=== PATIENT | male | born 1965 | race Hispanic/Latino ===

== ENCOUNTER 2017-10-01 10:33 | Observation (INO) | payer OTHER ==
[2017-10-01 10:51] LABS: BASOPHILS % (AUTO) 0.3 % (0.0-5.0); EOSINOPHILS % (AUTO) 1.4 % (0.0-8.0); HEMATOCRIT 41.9 % (42-54); LYMPHOCYTES % (AUTO) 23.9 % (21.0-51.0); MEAN CORPUSCULAR HEMOGLOBIN 30.6 pg (27.0-33.0); MEAN CORPUSCULAR HGB CONC 34.5 g/dL (32.0-36.0); MEAN CORPUSCULAR VOLUME 88.8 fL (79-99); NEUTROPHILS % (AUTO) 67.4 % (40.0-77.0); PLATELET COUNT (AUTO) 342 K/uL (130-400); RED BLOOD CELL COUNT(AUTO) 4.72 MIL/uL (4.50-6.20); RED CELL DISTRIBUTION WIDTH 13.6 % (11.0-15.5); WHITE BLOOD COUNT (AUTO) 9.4 K/uL (4.8-10.8)
[2017-10-01 11:01] LABS: CREATININE 0.8 mg/dL (0.5-1.5); POTASSIUM 4.3 mmol/L (3.5-5.1)
[2017-10-01 11:11] LABS: ALBUMIN 3.3 g/dL (3.5-5.0); BILIRUBIN,TOTAL 0.4 mg/dL (0.2-1.0); TOTAL PROTEIN, SERUM 7.5 g/dL (6.0-8.3)
[2017-10-01 11:13] LABS: CREATINE KINASE MB 1.1 ng/mL (0.5-3.6)
[2017-10-01] MEDS ORDERED: MORPHINE SULFATE 4 MG/1ML SYG IV PRN (12:45)
[2017-10-01] MEDS ORDERED: ONDANSETRON HCL 4 MG/2 ML VIAL IV PRN (12:45)
[2017-10-01] MEDS ORDERED: MAG HYDROX/AL HYDROX/SIMETH ES 30 ML SUSP UDCUP PO PRN (12:45)
[2017-10-01] MEDS ORDERED: LACTULOSE 20 GM/30 ML UDCUP PO PRN (12:45)
[2017-10-01] MEDS ORDERED: HYDRALAZINE HCL 20 MG/ML VIAL IV PRN (12:45)
[2017-10-01] MEDS ORDERED: ACETAMINOPHEN 325 MG TAB PO PRN ×2 (12:45)
[2017-10-01] MEDS ORDERED: GUAIFENESIN-DM 200/20 MG 10 ML PO PRN (12:45)
[2017-10-01] MEDS ORDERED: NITROGLYCERIN 0.4 MG SL TAB SL PRN (12:45)
[2017-10-01] MEDS ORDERED: ACETAMINOPHEN-CODEINE 300/30MG TAB PO PRN ×2 (12:45)
[2017-10-01] MEDS ORDERED: MORPHINE SULFATE 2 MG/ML 1ML SYG IV PRN (12:45)
[2017-10-01] MEDS ORDERED: POTASSIUM CHLORIDE 20 MEQ ERTAB PO PRN (14:15)
[2017-10-01] MEDS ORDERED: LIDOCAINE HCL-MPF 1% 2ML VIAL IVP PRN (14:15)
[2017-10-01] MEDS ORDERED: KETOROLAC TROMETHAMINE 15MG/ML IV PRN (14:15)
[2017-10-01] MEDS ORDERED: POTASSIUM CHLORIDE 20MEQ/100ML 100 ML IV PRN (14:15)
[2017-10-01] MEDS ORDERED: POTASSIUM CHLORIDE 10% ELIXIR 20 MEQ/15 ML UDCUP PO PRN (14:15)
[2017-10-01] MEDS ORDERED: ONDANSETRON HCL 4 MG/2 ML VIAL ONE (15:04)
[2017-10-01] MEDS ORDERED: IOPAMIDOL-370 100 ML VIAL IV ONE (15:16)
[2017-10-01 17:09] LABS: CREATINE KINASE MB 0.8 ng/mL (0.5-3.6); CREATINE KINASE, TOTAL 140 U/L (21-232); MYOGLOBIN 38 ng/mL (10-92); TROPONIN I < 0.04 ng/mL (0.00-0.06)
[2017-10-01] MEDS ORDERED: ENOXAPARIN SODIUM 40 MG/0.4 ML SYRINGE SQ ONE (18:40)
[2017-10-01] MEDS ORDERED: FAMOTIDINE/PF 20 MG/2 ML VIAL IV ONE (18:41)
[2017-10-01] MEDS ORDERED: METOPROLOL TARTRATE 25 MG TAB ONE (18:41)
[2017-10-01] MEDS ORDERED: FAMOTIDINE/PF 20 MG/2 ML VIAL IV SCH (21:00)
[2017-10-01] MEDS ORDERED: METOPROLOL TARTRATE 25 MG TAB PO SCH (21:00)
[2017-10-02 01:34] LABS: CREATINE KINASE MB 0.6 ng/mL (0.5-3.6); CREATINE KINASE, TOTAL 133 U/L (21-232); MYOGLOBIN 29 ng/mL (10-92); TROPONIN I < 0.04 ng/mL (0.00-0.06)
[2017-10-02 06:10] LABS: CREATININE 0.9 mg/dL (0.5-1.5); POTASSIUM 4.4 mmol/L (3.5-5.1)
[2017-10-02] MEDS ORDERED: ASPIRIN 325 MG TABLET ONE (08:15)
[2017-10-02] MEDS ORDERED: ENOXAPARIN SODIUM 40 MG/0.4 ML SYRINGE SQ ONE (08:16)
[2017-10-02] MEDS ORDERED: ASPIRIN 325 MG TABLET PO SCH (09:00)
[2017-10-02] MEDS ORDERED: ENOXAPARIN SODIUM 40 MG/0.4 ML SYRINGE SQ SCH (09:00)
== END 2017-10-02 11:38 | disposition home or self-care (01) ==
LOC: EDH 10:33 → EDHIP 12:33
PROVIDERS: ADMIT Internal Medicine; ATTEND Internal Medicine
DX: R07.89 Other chest pain (principal); Z88.0 Allergy status to penicillin; I10 Essential (primary) hypertension; Z79.899 Other long term (current) drug therapy; Z90.49 Acquired absence of other specified parts of digestive tract; Z87.891 Personal history of nicotine dependence; R79.1 Abnormal coagulation profile
CPT/HCPCS: 36415 ×2; 71045; 71275; 80048; 80053; 82550 ×3; 82553 ×3; 83874 ×2; 84484 ×3; 85025; 85378; 93005 ×3; 99285; G0378 ×23; J1650 ×2; J2405; J3490; Q9967; 96361; 96372; 96374

== ENCOUNTER 2018-09-11 11:21 | Emergency (ER) | payer OTHER ==
[2018-09-11] MEDS ORDERED: ONDANSETRON HCL 4 MG/2 ML VIAL ONE (12:04)
[2018-09-11] MEDS ORDERED: KETOROLAC TROMETHAMINE 30MG/ML ONE (12:04)
[2018-09-11] MEDS ORDERED: SODIUM CHLORIDE 0.9% 1000ML 1,000 ML IV ONE (12:04)
[2018-09-11 12:12] LABS: APPEARANCE,URINE Clear (CLEAR); BILIRUBIN,URINE Negative (NEGATIVE); COLOR,URINE Yellow (YELLOW); GLUCOSE, URINE (UA) Negative (NEGATIVE); KETONES,URINE Negative (NEGATIVE); LEUKOCYTE ESTERASE ,URINE Trace (NEGATIVE); NITRATE,URINE Negative (NEGATIVE); OCCULT BLOOD,URINE Negative (NEGATIVE); PH,URINE >=9.0 (5.0-8.0); PROTEIN,URINE Trace (NEGATIVE)
[2018-09-11 12:23] LABS: BASOPHILS % (AUTO) 0.5 % (0.0-5.0); HEMATOCRIT 43.3 % (42-54); LYMPHOCYTES % (AUTO) 30.2 % (21.0-51.0); MEAN CORPUSCULAR HEMOGLOBIN 30.7 pg (27.0-33.0); MEAN CORPUSCULAR HGB CONC 34.8 g/dL (32.0-36.0); MEAN CORPUSCULAR VOLUME 88.2 fL (79-99); MONOCYTES % (AUTO) 7.3 % (3.0-13.0); PLATELET COUNT (AUTO) 357 K/uL (130-400); RED BLOOD CELL COUNT(AUTO) 4.91 MIL/uL (4.50-6.20); RED CELL DISTRIBUTION WIDTH 13.1 % (11.0-15.5)
[2018-09-11 12:33] LABS: POTASSIUM 3.8 mmol/L (3.5-5.1)
[2018-09-11 12:36] LABS: BACTERIA,URINE Rare /HPF (None Seen); MUCUS,URINE Few LPF (None Seen); RBC,URINE 0-1 /HPF (0-1); SQUAMOUS EPITHELIAL CELL,UR Rare /HPF (0-2)
[2018-09-11 12:39] LABS: ALBUMIN 3.8 g/dL (3.5-5.0); BILIRUBIN,TOTAL 0.3 mg/dL (0.2-1.0); TOTAL PROTEIN, SERUM 8.2 g/dL (6.0-8.3)
== END 2018-09-11 14:40 | disposition home or self-care (01) ==
LOC: EDH 11:21
DX: N39.0 Urinary tract infection, site not specified (principal); E78.5 Hyperlipidemia, unspecified; I10 Essential (primary) hypertension; Z88.0 Allergy status to penicillin
CPT/HCPCS: 36415; 74176; 80053; 81001; 83690; 85025; 96374; 96375; 99284; J1885; J2405; J7030

== ENCOUNTER 2021-01-24 10:47 | Emergency (ER) | payer OTHER ==
[2021-01-24] MEDS ORDERED: DEXAMETHASONE SOD PHOSPHATE 10MG/ML 1ML VIAL ONE (12:46)
[2021-01-24] MEDS ORDERED: DIAZEPAM 5 MG TABLET ONE (12:47)
[2021-01-24] MEDS ORDERED: KETOROLAC TROMETHAMINE 30MG/ML ONE (12:47)
== END 2021-01-24 13:13 | disposition home or self-care (01) ==
LOC: EDH 10:47
DX: M54.42 Lumbago with sciatica, left side (principal); I10 Essential (primary) hypertension; E78.5 Hyperlipidemia, unspecified; Z88.0 Allergy status to penicillin; Z72.0 Tobacco use
CPT/HCPCS: 96372 ×2; 99284; J1100; J1885

== ENCOUNTER 2021-11-13 10:18 | Emergency (ER) | payer BC, OTHER, SELFPAY ==
[~2021-11-13] VITALS: Ht 165.1 cm; Wt 112.5 kg
[2021-11-13 10:48] VITALS: BP 131/78
[2021-11-13 11:09] LABS: CREATININE 0.8 mg/dL (0.5-1.5); POTASSIUM 3.8 mmol/L (3.5-5.1)
[2021-11-13 11:13] LABS: ALBUMIN 3.3 g/dL (3.5-5.0); BILIRUBIN,TOTAL 0.3 mg/dL (0.2-1.0); TOTAL PROTEIN, SERUM 7.1 g/dL (6.0-8.3)
[2021-11-13 11:17] LABS: BASOPHILS % (AUTO) 0.4 % (0.0-5.0); HEMATOCRIT 43.2 % (42-54); MEAN CORPUSCULAR HEMOGLOBIN 29.3 pg (27.0-33.0); MEAN CORPUSCULAR HGB CONC 32.2 g/dL (32.0-36.0); MEAN CORPUSCULAR VOLUME 91.1 fL (79-99); MONOCYTES % (AUTO) 6.3 % (3.0-13.0); PLATELET COUNT (AUTO) 377 K/uL (130-400); RED BLOOD CELL COUNT(AUTO) 4.74 MIL/uL (4.50-6.20); RED CELL DISTRIBUTION WIDTH 13.6 % (11.0-15.5); WHITE BLOOD COUNT (AUTO) 9.4 K/uL (4.8-10.8)
== END 2021-11-13 12:43 | disposition home or self-care (01) ==
LOC: EDH 10:18
DX: R07.89 Other chest pain (principal); I10 Essential (primary) hypertension; E78.5 Hyperlipidemia, unspecified; Z90.49 Acquired absence of other specified parts of digestive tract; Z88.0 Allergy status to penicillin
CPT/HCPCS: 36415; 71045; 80053; 83880; 84484; 85025; 93005

== ENCOUNTER 2022-03-12 23:33 | Emergency (ER) | payer BC ==
[~2022-03-12] VITALS: Ht 165.1 cm; Wt 108.9 kg
[2022-03-13 01:29] LABS: APPEARANCE,URINE CLEAR (CLEAR); BILIRUBIN,URINE NEGATIVE (NEGATIVE); COLOR,URINE YELLOW (YELLOW); GLUCOSE, URINE (UA) NEGATIVE (NEGATIVE); KETONES,URINE NEGATIVE (NEGATIVE); LEUKOCYTE ESTERASE ,URINE NEGATIVE (NEGATIVE); NITRATE,URINE NEGATIVE (NEGATIVE); OCCULT BLOOD,URINE NEGATIVE (NEGATIVE); PROTEIN,URINE NEGATIVE (NEGATIVE); UROBILINOGEN,URINE 0.2 mg/dL (0.2-1.0)
[2022-03-13] MEDS ORDERED: KETOROLAC 60 MG VIAL (30MG/ML) IM ONE ×2 (02:30→02:35)
[2022-03-13] MEDS ORDERED: DEXAMETHASONE SOD PHOSPHATE 4 MG/ML 1ML VIAL IM ONE (02:30)
[2022-03-13] MEDS ORDERED: ORPHENADRINE CITRATE 30 MG/ML ML IM ONE (02:30)
[2022-03-13] MEDS ORDERED: DEXAMETHASONE SOD PHOSPHATE 4 MG/ML 1ML VIAL ONE (02:34)
[2022-03-13] MEDS ORDERED: ORPHENADRINE CITRATE 30 MG/ML ML ONE (02:35)
[2022-03-13 02:45] VITALS: BP 132/72
[2022-03-13] MEDS ORDERED: CYCL-309 PO (02:51)
== END 2022-03-13 03:07 | disposition home or self-care (01) ==
LOC: EDH 23:33
DX: M54.32 Sciatica, left side (principal); E78.00 Pure hypercholesterolemia, unspecified; I10 Essential (primary) hypertension; F17.200 Nicotine dependence, unspecified, uncomplicated; Z88.0 Allergy status to penicillin; Z79.1 Long term (current) use of non-steroidal anti-inflammatories (NSAID); Z79.52 Long term (current) use of systemic steroids
CPT/HCPCS: 81003; 96372 ×3; 99284; J1100; J1885; J2360

== ENCOUNTER 2024-11-01 04:42 | Emergency (ER) | payer BC ==
[~2024-11-01] VITALS: Ht 165.1 cm; Wt 104.3 kg
[~2024-11-01 04:42] MED LIST: AMLO-257 PO; ATOR10 PO; LISI20TA24 PO; METF-444 PO; PANT40TA54 PO
--- NOTE | 2024-11-01 04:47 | NUR ---
PT CARE ASSUMED AT THIS TIME
--- NOTE | 2024-11-01 05:05 | ERN ---
ED Note History of Present Illness Stated Complaint: ABD PAIN, FLANK PAIN, BACK PAIN Chief Complaint: Multiple Complaints Time Seen by MD: 04:20 Dictation: This is a 59-year-old male who presented to the emergency room stating that he has been experiencing severe right-sided abdominal pain and flank pain radiating to the back since 10/30/2024. He stated that the pain got so worse today that he could not sleep and came in for evaluation also reports some nausea intermittently but no vomitings diarrhea hematemesis or melena he had his last BM yesterday small quantity. No history of any diarrhea. He denied any hematuria frequency dysuria but he does have a history of previous kidney stone. Temperature 97.7 pulse 79 respirations 20 blood pressure 158/96 with a pulse oximetry of 98% on room air Chronic problems include hypertension hypercholesterolemia, sciatica, nephrolithiasis Allergies: Coded Allergies: No Allergy Information Available (Verified Allergy, Unknown, 10/02/17) Penicillins (Unverified Allergy, Unknown, 01/24/21) Home Meds Active Scripts Ketorolac Tromethamine (Toradol) 10 Mg Tab, 1 TAB PO Q6HPRN PRN for pain for 5 Days, #20 TAB 0 Refills Prov:HERBER WARE MD 11/01/24 Levofloxacin (Levofloxacin) 250 Mg Tablet, 1 TAB PO DAILY for 3 Days, #7 TAB 0 Refills Prov:HERBER WARE MD 11/01/24 Tamsulosin HCl (Flomax) 0.4 Mg Cap.er.24h, 1 CAP PO DAILY for 30 Days, #30 CAP 0 Refills Prov:HERBER WARE MD 11/01/24 Reported Medications Amlodipine Besylate (Amlodipine Besylate) 5 Mg Tablet, 5 MG PO DAILY, TAB 05/04/24 Lisinopril (Lisinopril) 20 Mg Tablet, 20 MG PO DAILY, TAB 05/04/24 Metformin HCl (Metformin HCl) 500 Mg Tablet, 500 MG PO AD, TAB 05/04/24 Pantoprazole Sodium (Pantoprazole Sodium) 40 Mg Tablet.dr, 40 MG PO DAILY, TAB 05/04/24 Atorvastatin Calcium (LIPITOR) 20 Mg Tab, 20 MG PO HS, TAB 05/04/24 Past Medical History Past Medical History: High Cholesterol, Hypertension, Kidney Stone, Sciatica Surgical History: Cholecystectomy Social History: Smokers, ETOH RN Note Reviewed/Agreed w/PFSH: Yes Review of System Dictation Constitutional: Negative for fever,chills, and weight loss Eyes: Negative for injury, pain,redness, and discharge ENT: Negative for injury,pain or swelling Cardiovascular: Negative for chest pain, palpitations, and edema Respiratory: Negative for shortness of breath, cough, and wheezing, Abdomen/GI: Negative for abdominal pain, nausea, vomiting, diarrhea, and constipation Back: Negative for injury and pain : Negative for injury, bleeding and discharge positive for right flank pain radiating to the back MS/Extremity: Negative for injury and deformity Skin: Negative for rash, and discoloration Neuro: Negative for headache, weakness, numbness, tingling, and seizure Psych: Negative for suicide ideation, homicidal ideation, and hallucinations Initial Vital Sign VS Vital Signs Date Time Temp Pulse Resp B/P (MAP) Pulse Ox O2 Delivery O2 Flow Rate FiO2 11/01/24 04:43 97.7 79 20 158/96 98 Room Air 11/01/24 05:05 0 21 Physical Exam Dictation General: awake, alert, NAD very obese patient pleasant not in any acute distress Head/Face: Normocephalic, atraumatic Eyes: PERRL, EOMI, vision at baseline ENT: oral cavity clear, TMs clear, no signs of infection Neck: Trachea midline, supple, no nuchal rigidity Cardiovascular: RRR, normal S1/S2, No MRGs, no JVD Respiratory: CTAB, no respiratory distress, No rales or wheezes Abdomen: Soft, obese, right flank tender to palpation, normal bowel sounds, no guarding or rebound. Skin: Warm, dry, normal turgor, no rash MS/Extremity: Pulses equal, no cyanosis, neurovascular intact, FROM Neuro: COAx4, GCS 15, strength 5/5, CN 2-12 intact, normal cerebellar exam, normal gait, Psych: Normal behavior, mood, and affect normal Extremities-trace edema without any palpable cords, Homans sign is negative Results (Laboratory/Radiology) Laboratory/Radiology Laboratory Tests Test 11/01/24 05:03 11/01/24 06:42 White Blood Count 11.9 K/uL (4.8-10.8) H Red Blood Count 4.94 MIL/uL (4.50-6.20) Hemoglobin 14.8 g/dL (14.0-18.0) Hematocrit 44.0 % (42-54) Mean Corpuscular Volume 89.1 fL (79-99) Mean Corpuscular Hemoglobin 30.0 pg (27.0-33.0) Mean Corpuscular Hemoglobin Concent 33.6 g/dL (32.0-36.0) Red Cell Distribution Width 13.3 % (11.0-15.5) Platelet Count 338 K/uL (130-400) Mean Platelet Volume 8.8 fL (7.5-10.5) Immature Granulocyte % (Auto) 0.3 % (0-1) Neutrophils (%) (Auto) 63.2 % (40.0-77.0) Lymphocytes (%) (Auto) 25.1 % (21.0-51.0) Monocytes (%) (Auto) 8.2 % (3.0-13.0) Eosinophils (%) (Auto) 2.9 % (0.0-8.0) Basophils (%) (Auto) 0.3 % (0.0-5.0) Neutrophils # (Auto) 7.5 K/uL (1.8-7.7) Lymphocytes # (Auto) 3.0 K/uL (1.0-4.8) Monocytes # (Auto) 1.0 K/uL (0.1-1.0) Eosinophils # (Auto) 0.35 K/uL (0.00-0.70) Basophils # (Auto) 0.04 K/uL (0.00-0.20) Absolute Immature Granulocyte (auto 0.03 K/uL (0-1) Nucleated Red Blood Cells 0.0 % (0.0-0.19) Sodium Level 144 mmol/L (136-145) Potassium Level 3.8 mmol/L (3.5-5.1) Chloride Level 105 mmol/L (101-111) Carbon Dioxide Level 28 mmol/L (21-32) Blood Urea Nitrogen 18 mg/dL (7-18) Creatinine 1.0 mg/dL (0.5-1.3) Glomerular Filtration Rate Calc 86 mL/min (>90) Random Glucose 116 mg/dL (70-105) H Total Calcium 9.0 mg/dL (8.5-10.1) Total Bilirubin 0.2 mg/dL (0.2-1.0) Direct Bilirubin 0.1 mg/dL (0.0-0.3) Aspartate Amino Transf (AST/SGOT) 29 U/L (10-37) Alanine Aminotransferase (ALT/SGPT) 62 U/L (12-78) Alkaline Phosphatase 122 U/L (50-136) Troponin I High Sensitivity 6 ng/L (4-75) Total Protein 8.0 g/dL (6.0-8.3) Albumin 3.8 g/dL (3.5-5.0) Lipase 63 U/L (16-77) Urine Color LIGHT-YELLOW (YELLOW) Urine Appearance CLEAR (CLEAR) Urine pH 5.5 (5.0-8.0) Urine Specific Hibbs 1.023 (1.001-1.031) Urine Protein NEGATIVE mg/dL (NEGATIVE) Urine Glucose (UA) NEGATIVE mg/dL (NEGATIVE) Urine Ketones NEGATIVE mg/dL (NEGATIVE) Urine Occult Blood MODERATE (NEGATIVE) H Urine Nitrate NEGATIVE (NEGATIVE) Urine Bilirubin NEGATIVE mg/dL (NEGATIVE) Urine Urobilinogen 0.2 mg/dL (0.2-1.0) Urine Leukocyte Esterase NEGATIVE Erlin/uL Urine RBC 6-10 /HPF (0-1) H Urine WBC 2-5 /HPF (0-1) H Urine Squamous Epithelial Cells RARE /HPF (0-2) Urine Bacteria RARE /HPF (None Seen) Labs Reviewed?: Yes EKG Comment: Twelve lead EKG done on 11/01/2024 at 4:43 a.m. showed a heart rate of 69, MA interval 191, QRS 92, QT/QTC 401/429 Impression normal sinus rhythm with no acute STT wave changes noted. Isolated Q-waves seen in lead 3 and AVF suggestive of old infarct. Overall somewhat of a low voltage in the anterior leads. Interpreted by ER MD Dr. Candelaria ED Course ED Course Orders Procedure Category Date Status Time Cbc With Differential LAB 11/01/24 Complete 04:46 Basic Metabolic Panel LAB 11/01/24 Complete 04:46 Urinalysis Profile LAB 11/01/24 Complete 04:46 12 Lead Ekg Tracing- EKG 11/01/24 Complete Technical 04:46 Troponin I High LAB 11/01/24 Complete Sensitivity 04:46 Lipase LAB 11/01/24 Complete 04:46 Hepatic Function Panel LAB 11/01/24 Complete 04:46 Ct Abd/Pel Wo Con CT 11/01/24 Resulted Renal/Appy 05:51 Ondansetron 4mg Inj PHA 11/01/24 Complete (Zofran 4mg Inj) 06:00 Morphine 4mg Syg PHA 11/01/24 Complete (Morphine 4mg Syg) 06:00 0.9% Nacl 500ml PHA 11/01/24 Complete Iv.Soln (Ns 500ml 06:00 Tamsulosin Hcl PHA 11/01/24 Complete (Flomax) 09:00 Current Medications Medications (Trade) Dose Ordered Sig/Amarjit Route PRN Reason Start Time Stop Time Status Last Admin Dose Admin Morphine Sulfate (morPHINE 4MG SYG) 4 mg ONCE ONCE IVP 11/01/24 06:00 11/01/24 06:01 DC 11/01/24 06:10 Ondansetron HCl (zoFRAN 4MG INJ) 4 mg ONCE ONCE IVP 11/01/24 06:00 11/01/24 06:01 DC 11/01/24 06:10 Sodium Chloride 500 ml @ 0 mls/hr ONCE ONCE IV 11/01/24 06:00 11/01/24 06:01 DC 11/01/24 06:10 Tamsulosin HCl (FloMAX) 0.4 mg ONCE ONCE PO 11/01/24 09:00 11/01/24 09:01 DC 11/01/24 08:40 Vital Signs Date Time Temp Pulse Resp B/P (MAP) Pulse Ox O2 Delivery O2 Flow Rate FiO2 11/01/24 07:06 98.2 70 17 120/68 97 Room Air* 0 21 11/01/24 06:06 98.2 75 18 138/88 97 Room Air* 0 21 11/01/24 05:05 98.2 79 18 125/70 97 Room Air* 0 21 11/01/24 04:43 97.7 79 20 158/96 98 Room Air Medical Decision Making MDM MDM: Differential diagnosis: Renal colic, constipation, cholangitis, diverticulitis Rationale: Tests considered and ordered secondary to shared decision making include: Previous outside records reviewed: Old ER visits. Risk of complication and/or morbidity or mortality of patient management: None Medications-Per medication reconciliation Need for hospitalization: Patient does not meet criteria for hospitalization. Need for emergency major/minor surgery: No There are no social concerns with this patient. Prescription drug management Prescriptions will include symptomatic care Patient's prior external medical records from other ER visits were reviewed by me as indicated. Prior testing and results from previous visits were reviewed. Prior tests were taken into account with medical decision making and resource utilization, independent historian/historians were used to obtain complete medical history. I independently interpreted the test that were performed, results were reviewed by me and considered findings on radiology if ordered. Medical management and examination interpretation discussions were had by me with other qualified healthcare professionals as indicated for the patient's care. I took care of with the patient starting 7:00 a.m. from overnight physician. Patient came with a right flank pain. He was found to have stone in the right ureter. The PC description below. IMPRESSION: 1. 5 mm distal right ureteral stone contributing to moderate right hydroureteronephrosis. 2. Slightly enlarged fatty liver. 3. Distal colonic diverticulosis and moderate stool burden. 4. Arteriosclerotic disease as described. Urology was called for further evaluation and treatment. I discussed the findings with the patient, I explained to him that it is possible that he could pass the stone at home, we will provide a Flomax, pain medication and he was encouraged to drink enough fluids. If the pain persists patient to come back to the emergency department for further evaluation by urologist. Problem List Problem List: (1) Right flank pain (2) Morbid obesity (3) Chronic constipation DX & DISP Disposition: Discharge Departure Impression: Primary Impression: Right flank pain Additional Impressions: Morbid obesity, Chronic constipation, Right nephrolithiasis, Hydronephrosis concurrent with and due to calculi of kidney and ureter Condition: Stable Scripts Ketorolac Tromethamine (Toradol) 10 Mg Tab 1 TAB PO Q6HPRN PRN for pain for 5 Days, #20 TAB 0 Refills Prov: HERBER WARE MD 11/01/24 Levofloxacin (Levofloxacin) 250 Mg Tablet 1 TAB PO DAILY for 3 Days, #7 TAB 0 Refills Prov: HERBER WARE MD 11/01/24 Tamsulosin HCl (Flomax) 0.4 Mg Cap.er.24h 1 CAP PO DAILY for 30 Days, #30 CAP 0 Refills Prov: HERBER WARE MD 11/01/24 Additional Instructions: Patient and the caregiver have been informed of all the diagnostic tests and the imaging conducted during the today's visit to the emergency room and has verbalized understanding of the results I have personally reviewed and interpreted all diagnostic exams performed here in the ER today as well as the vital signs documented by the nursing staff. The patient is now being discharged to home and should follow up with the primary care physician or the specialist as directed by the ER staff. Follow-up with primary care provider in 1 to 2 days. Take medications as directed here in the emergency room. Okay to continue home medications unless otherwise discussed during your visit in the emergency room today. Return to your nearest emergency room if symptoms worsen or if there is no improvement. Call 911 if you need immediate assistance. Take Tylenol or Motrin [id number] as needed and if no contraindications are present. Increase oral hydration. A wound culture or urine culture was ordered here in the emergency room department please follow-up with primary care provider and advise them to get repeat ports from our facility. If you had any Jean Claude wrap/splints that were applied here, please do not remove them until you see your primary care or specialty. Referrals: LATESHA ARNOLD (PCP) ANNE CANDELARIA MD Nov 01, 2024 05:05 HERBER WARE MD Nov 01, 2024 08:36
[2024-11-01 05:09] LABS: BASOPHILS # (AUTO) 0.04 K/uL (0.00-0.20); BASOPHILS % (AUTO) 0.3 % (0.0-5.0); EOSINOPHILS # (AUTO) 0.35 K/uL (0.00-0.70); EOSINOPHILS % (AUTO) 2.9 % (0.0-8.0); IMMATURE GRANULOCYTE ABSOLUTE 0.03 K/uL (0-1); LYMPHOCYTES % (AUTO) 25.1 % (21.0-51.0); MEAN CORPUSCULAR HGB CONC 33.6 g/dL (32.0-36.0); MEAN CORPUSCULAR VOLUME 89.1 fL (79-99); MONOCYTES % (AUTO) 8.2 % (3.0-13.0); NEUTROPHILS # (AUTO) 7.5 K/uL (1.8-7.7); NEUTROPHILS % (AUTO) 63.2 % (40.0-77.0); PLATELET COUNT (AUTO) 338 K/uL (130-400); RED BLOOD CELL COUNT(AUTO) 4.94 MIL/uL (4.50-6.20); RED CELL DISTRIBUTION WIDTH 13.3 % (11.0-15.5); WHITE BLOOD COUNT (AUTO) 11.9 K/uL (4.8-10.8)
[2024-11-01 05:45] LABS: ALBUMIN 3.8 g/dL (3.5-5.0); BILIRUBIN,DIRECT 0.1 mg/dL (0.0-0.3); BILIRUBIN,TOTAL 0.2 mg/dL (0.2-1.0); POTASSIUM 3.8 mmol/L (3.5-5.1)
[2024-11-01] MEDS: 0.9% NACL 500ML IV.SOLN 500 ML IV ONE (06:10)
[2024-11-01] MEDS: morPHINE 4 MG SYG IVP ONE (06:10)
[2024-11-01] MEDS: ondanSETRON 4MG INJ IVP ONE (06:10)
[2024-11-01 06:55] LABS: APPEARANCE,URINE CLEAR (CLEAR); BILIRUBIN,URINE NEGATIVE (NEGATIVE); COLOR,URINE LIGHT-YELLOW (YELLOW); GLUCOSE, URINE (UA) NEGATIVE (NEGATIVE); KETONES,URINE NEGATIVE (NEGATIVE); LEUKOCYTE ESTERASE ,URINE NEGATIVE Leu/uL (NEGATIVE); NITRATE,URINE NEGATIVE (NEGATIVE); OCCULT BLOOD,URINE MODERATE (NEGATIVE); PH,URINE 5.5 (5.0-8.0); PROTEIN,URINE NEGATIVE (NEGATIVE); UROBILINOGEN,URINE 0.2 mg/dL (0.2-1.0)
[2024-11-01 07:11] LABS: ADD UA MICROSCOPIC YES
--- NOTE | 2024-11-01 07:22 | NUR ---
REPORT GIVEN TO DEXTER FERNANDEZ AT THIS TIME
--- NOTE | 2024-11-01 07:28 | EKG ---
[facility] Test Date: 2024-11-01 Test Time: 04:43:38 Pat Name: JACKSON POWERS Department: ED Room: Gender: M Temperature Regulator: 1088 : 1965 Requested By: ANNE GARRETT Order Number: [id number] Reading MD: Gilberto Mauricio Measurements Intervals [place] Rate: 69 P: 46 MA: 191 QRS: -33 QRSD: 92 T: 19 QT: 401 QTc: 429 Interpretive Statements Sinus rhythm Inferior infarct, old Compared to ECG 05/04/2024 12:13:02 No significant changes Electronically Signed On 11-01-2024 10:01:02 DEPOT MANAGER by Gilberto Mauricio Please click the below link to view image of tracing.
[2024-11-01 07:30] LABS: BACTERIA,URINE RARE /HPF (None Seen); MUCUS,URINE RARE LPF (None Seen); SQUAMOUS EPITHELIAL CELL,UR RARE /HPF (0-2)
--- NOTE | 2024-11-01 08:19 | HMCIMG ---
CT ABDOMEN WITHOUT CONTRAST. CT PELVIS WITHOUT CONTRAST. INDICATION: Right flank pain TECHNIQUE: Routine transaxial imaging using 5 mm slice thickness through the abdomen and pelvis without the administration of IV contrast. Thin slice reconstructions are also provided. Coronal and sagittal reformatted images acquired for interpretation. CT was performed with one or more of the following dose reduction techniques: Automated exposure control, adjustment of the mA and/or kV according to patient size, or use of iterative reconstruction technique. COMPARISON: 05/04/2024 FINDINGS: ON NONCONTRAST IMAGING: ABDOMEN: Heart size is normal. Coronary arterial wall calcific plaque noted. Visible lung bases are clear. No abnormal left renal calcifications, hydronephrosis, perinephric inflammation, or proximal hydroureter detected. 5 mm nonobstructing calculus within the distal right ureter contributing to moderate hydroureteronephrosis and right perinephric stranding. The liver is slightly enlarged and smooth in contour without biliary duct dilation. Diffuse low attenuation of the liver parenchyma suggests fatty change. The spleen is normal in size and attenuation. The gallbladder his absent. The pancreas appears normal without pancreatic duct dilation. The adrenal glands appear normal. No significant abdominal, retrocrural or retroperitoneal adenopathy noted. No evidence for intra-abdominal free air or organized fluid collection. Trace calcific plaque is noted along the abdominal aortic and iliac vessel singleton without aneurysmal dilation. PELVIS: No abnormal calcifications within the urinary bladder or distal ureters. No evidence for free air or organized pelvic fluid collection. No significant pelvic adenopathy detected. Moderate stool burden. Several diverticula along the distal colon. Terminal ileum appears unremarkable. The appendix appears normal. Mild thoracolumbar spondylosis. IMPRESSION: 1. 5 mm distal right ureteral stone contributing to moderate right hydroureteronephrosis. 2. Slightly enlarged fatty liver. 3. Distal colonic diverticulosis and moderate stool burden. 4. Arteriosclerotic disease as described.
[2024-11-01] MEDS: tamSULOsin HCL 0.4 MG CAP.ER.24H PO ONE (08:40)
[2024-11-01 09:05] VITALS: BP 154/76; PULSE 70; RESP 17; TEMP 98; O2SAT 97
[2024-11-01] MEDS ORDERED: TAMS-1 PO (09:26)
[2024-11-01] MEDS ORDERED: LEVO250T75 PO (09:26)
[2024-11-01] MEDS ORDERED: KETO10 PO (09:26)
== END 2024-11-01 09:50 | disposition home or self-care (01) ==
LOC: EDH 04:42
DX: R10.9 Unspecified abdominal pain (principal); E66.01 Morbid (severe) obesity due to excess calories; K59.09 Other constipation; N13.2 Hydronephrosis with renal and ureteral calculous obstruction; E78.00 Pure hypercholesterolemia, unspecified; F17.200 Nicotine dependence, unspecified, uncomplicated; I10 Essential (primary) hypertension; Z79.899 Other long term (current) drug therapy; Z88.0 Allergy status to penicillin; Z90.49 Acquired absence of other specified parts of digestive tract
CPT/HCPCS: 99284; 74176; 96374; 96361; 96375; 80076; 84484; 80048; 83690; 85025; 81001; 36415; 93005; J7040; J2405; J2270

== ENCOUNTER → 2025-02-12 | Outpatient (CLI) | payer OTHER ==
[~2025-02-12] MED LIST changes: +KETO10 PO; +LEVO250T75 PO; +TAMS-55 PO
--- NOTE | 2025-02-12 11:36 | HMCIMG ---
CT HEART SAVER PROMOTIONAL HISTORY: Calcium scoring COMPARISON: None TECHNIQUE: Computed tomography of the heart was performed with ECG gating and suspended respiration. Postprocessing was performed on a computer workstation to obtain diastolic phase images, determine calcium score and provide a quantitative assessment of extent of disease. This CT included only the heart. HeartSaver score is 2227.4. Please see cardiac calcium score report. The available CT chest images show no acute finding. CT was performed with one or more following dose reduction techniques: automated exposure control, adjustment of the mA and kv according to patient's size, or use of a iterative reconstruction technique.
== END | disposition home or self-care (01) ==
LOC: RAH 09:41
PROVIDERS: ATTEND Nurse Practitioner Family
DX: Z13.6 Encounter for screening for cardiovascular disorders (principal); I10 Essential (primary) hypertension
CPT/HCPCS: 75571

== ENCOUNTER 2025-02-16 04:18 | Emergency (ER) | payer BC, OTHER ==
[~2025-02-16] VITALS: Ht 165.1 cm; Wt 102.1 kg
--- NOTE | 2025-02-16 04:28 | ERN ---
General Chief Complaint: Tooth Ache/Pain Stated Complaint: TOOTHACHE, SWELLING Time Seen by MD: 04:20 Source: patient History of Present Illness Initial Comments PATIENT IS A 60-YEAR-OLD MALE COMING IN TO BE EVALUATED FOR RIGHT FACIAL SWELLING. PATIENT STATES THAT HE HAS BEEN HAVING PROBLEMS WITH A HIS MOLAR TOOTH AND GETS REPEATED INFECTIONS. WHO SAYS HE IS PENDING A VISIT FROM HIS DENTIST BUT HAS NOT BEEN ABLE TO GO. Allergies: Coded Allergies: No Allergy Information Available (Verified Allergy, Unknown, 10/02/17) Penicillins (Unverified Allergy, Unknown, 01/24/21) Home Meds Active Scripts Ketorolac Tromethamine (Toradol) 10 Mg Tab, 1 TAB PO Q6HPRN PRN for pain for 5 Days, #20 TAB 0 Refills Prov:HERBER WARE MD 11/01/24 Levofloxacin (Levofloxacin) 250 Mg Tablet, 1 TAB PO DAILY for 3 Days, #7 TAB 0 Refills Prov:HERBER WARE MD 11/01/24 Tamsulosin HCl (Flomax) 0.4 Mg Cap.er.24h, 1 CAP PO DAILY for 30 Days, #30 CAP 0 Refills Prov:HERBER WARE MD 11/01/24 Reported Medications Amlodipine Besylate (Amlodipine Besylate) 5 Mg Tablet, 5 MG PO DAILY, TAB 05/04/24 Lisinopril (Lisinopril) 20 Mg Tablet, 20 MG PO DAILY, TAB 05/04/24 Metformin HCl (Metformin HCl) 500 Mg Tablet, 500 MG PO AD, TAB 05/04/24 Pantoprazole Sodium (Pantoprazole Sodium) 40 Mg Tablet.dr, 40 MG PO DAILY, TAB 05/04/24 Atorvastatin Calcium (LIPITOR) 20 Mg Tab, 20 MG PO HS, TAB 05/04/24 Past Medical History Past Medical History: High Cholesterol, Hypertension, Kidney Stone, Sciatica Past Surgical History: Cholecystectomy Social History Social History: Smokers, ETOH ROS Dictation CONSTITUTIONAL: NO CHILLS, NO FEVER, NO WEAKNESS, NO DIAPHORESIS, NO MALAISE. HEAD/FACE: NO SIGNS OF TRAUMA. EENT: NO EYE PAIN, NO BLURRED VISION, NO TEARING, NO DOUBLE VISION, NO EAR PAIN, NO EAR DISCHARGE, NO NOSE PAIN, NO NASAL CONGESTION, NO THROAT PAIN, NO THROAT SWELLING, NO MOUTH PAIN. RESPIRATORY: NO COUGH, NO ORTHOPNEA, NO SOB, NO STRIDOR, NO WHEEZING. CARDIOVASCULAR: NO CHEST PAIN, NO EDEMA, NO PALPITATIONS, NO SYNCOPE. GASTROINTESTINAL/ABDOMINAL: NO ABDOMINAL PAIN, NO CONSTIPATION, NO DIARRHEA, NO NAUSEA, NO VOMITING. GENITOURINARY: NO ABNORMAL DISCHARGE, NO DYSURIA, NO FREQUENT URINATION, NO HEMATURIA. NO COMPLAINTS OF PAIN IN THE GENITALS. MUSCULOSKELETAL: NO BACK PAIN, NO GOUT, NO JOINT PAIN, NO JOINT SWELLING, NO MUSCLE PAIN, NO MUSCLE STIFFNESS, NO NECK PAIN. INTEGUMENTARY: NO CHANGE IN COLOR, NO CHANGE IN HAIR/NAILS, NO DRYNESS, NO LESION, NO LUMPS, NO RASH. NEUROLOGICAL/PSYCH: NO ANXIETY, NOT DEPRESSED, NO EMOTIONAL PROBLEM, NO HEADACHE, NO NUMBNESS, NO PRE-EXISTING DEFICIT, NO HISTORY OF SEIZURES, NO TREMORS, NO WEAKNESS. HEMATOLOGIC/LYMPHATIC: NOT ANEMIC, NO HISTORY OF BLOOD CLOTS, NO APPARENT BLEEDING, NO BRUISING, GLANDS NOT SWOLLEN. ALL SYSTEMS NEGATIVE, EXCEPT NOTED. Physical Exam Physical Exam Dictation VITAL SIGNS: REVIEWED. GENERAL APPEARANCE: ALERT, ORIENTED X3, NO ACUTE DISTRESS, OBESE. HEAD AND FACE: NON-TRAUMATIC. EYES: PERRL, PINK CONJUNCTIVAS, EYELID NO TRAUMA, ANTERIOR CHAMBER CLEAR. EARS: PINNAS INTACT AND NO SIGNS OF TRAUMA OR ERYTHEMA. EAR CANALS CLEAR AND NO DISCHARGE. TMS NO ERYTHEMA. NOSE: NO DISCHARGE, NO BLEEDING. OROPHARYNX: MOUTH NORMAL, TEETH NO CARIES, TONGUE PINK. PHARYNX CLEAR, NO ERYTHEMA. TONSILS NO EXUDATES, NO ABSCESSES NOTED. MUCOUS MEMBRANE MOIST. NECK: SUPPLE, NON-TENDER, NO THYROMEGALY, NO MASSES, NO JVD, NO BRUITS. BREAST: DEFERRED. CHEST: NO TENDERNESS, NO CREPITUS, NO PARADOXICAL MOVEMENT, NO RETRACTIONS. LUNGS: CLEAR, WELL-VENTILATED, SYMMETRIC, NO RALES, NO WHEEZING, NO RHONCHI, NO STRIDOR, GOOD BREATH SOUNDS BILATERALLY. HEART: REGULAR RATE, REGULAR RHYTHM, NO MURMUR, NO GALLOPS. VASCULAR: NO PERIPHERAL EDEMA. ABDOMEN: SOFT, POSITIVE BOWEL SOUNDS, NONDISTENDED, NO GUARDING, NONTENDER, NO REBOUND, NO MASSES NO HEPATOMEGALY, NO SPLENOMEGALY, NO JIMENEZ'S SIGN, NO HERNIAS. RECTAL: DEFERRED. GENITAL: DEFERRED. NEUROLOGICAL: NORMAL SPEECH, GROSS MOTOR FUNCTION INTACT, GROSS SENSORY FUNCTION INTACT. MUSCULOSKELETAL: NECK NONTENDER, FULL RANGE OF MOTION, BACK NONTENDER, FULL RANGE OF MOTION. EXTREMITIES: NONTENDER, FULL RANGE OF MOTION. SKIN: COLOR PINK, DRY, NO TURGOR, NO RASH, NO LACERATIONS, NO ABRASIONS, NO CONTUSIONS. LYMPHATICS: DEFERRED. Results Laboratory and Microbiology Lab and Micro Result Laboratory Tests Test 02/16/25 04:34 White Blood Count 11.6 K/uL (4.8-10.8) H Red Blood Count 4.74 MIL/uL (4.50-6.20) Hemoglobin 14.3 g/dL (14.0-18.0) Hematocrit 42.4 % (42-54) Mean Corpuscular Volume 89.5 fL (79-99) Mean Corpuscular Hemoglobin 30.2 pg (27.0-33.0) Mean Corpuscular Hemoglobin Concent 33.7 g/dL (32.0-36.0) Red Cell Distribution Width 13.4 % (11.0-15.5) Platelet Count 324 K/uL (130-400) Mean Platelet Volume 8.5 fL (7.5-10.5) Immature Granulocyte % (Auto) 0.3 % (0-1) Neutrophils (%) (Auto) 64.8 % (40.0-77.0) Lymphocytes (%) (Auto) 21.8 % (21.0-51.0) Monocytes (%) (Auto) 11.2 % (3.0-13.0) Eosinophils (%) (Auto) 1.6 % (0.0-8.0) Basophils (%) (Auto) 0.3 % (0.0-5.0) Neutrophils # (Auto) 7.5 K/uL (1.8-7.7) Lymphocytes # (Auto) 2.5 K/uL (1.0-4.8) Monocytes # (Auto) 1.3 K/uL (0.1-1.0) H Eosinophils # (Auto) 0.19 K/uL (0.00-0.70) Basophils # (Auto) 0.04 K/uL (0.00-0.20) Absolute Immature Granulocyte (auto 0.04 K/uL (0-1) Nucleated Red Blood Cells 0.0 % (0.0-0.19) Sodium Level 144 mmol/L (136-145) Potassium Level 3.9 mmol/L (3.5-5.1) Chloride Level 106 mmol/L (101-111) Carbon Dioxide Level 32 mmol/L (21-32) Blood Urea Nitrogen 12 mg/dL (7-18) Creatinine 0.7 mg/dL (0.5-1.3) Glomerular Filtration Rate Calc 105 mL/min (>90) Random Glucose 99 mg/dL (70-105) Total Calcium 9.0 mg/dL (8.5-10.1) Labs Reviewed?: Yes MDM MDM: DIFFERENTIAL DIAGNOSIS: PERIODONTAL DISEASE, FACIAL ABSCESS, RATIONALE: TESTS CONSIDERED AND ORDERED SECONDARY TO SHARED DECISION MAKING INCLUDE: PREVIOUS OUTSIDE RECORDS REVIEWED: OLD ER VISITS. RISK OF COMPLICATION AND/OR MORBIDITY OR MORTALITY OF PATIENT MANAGEMENT: NONE PATIENT IS A 60-YEAR-OLD MALE COMING IN TO BE EVALUATED FOR RIGHT-SIDED FACIAL SWELLING. PATIENT STATES THAT HE HAS BEEN DEALING WITH MOLAR INFECTION HAS BEEN TO THE DENTIST YET BUT HE IS PENDING A VISIT TO HIM. PATIENT WILL BE DISCHARGED WITH ORAL ANTIBIOTICS WELL ORAL STEROIDS. I DID ADVISED HIM APPROPRIATE FOLLOW UP WITH PCP AND/OR DENTIST IN 1-2 DAYS. ED Course Orders Procedure Category Date Status Time Cbc With Differential LAB 02/16/25 Complete 04:25 Basic Metabolic Panel LAB 02/16/25 Complete 04:25 Methylprednisolone PHA 02/16/25 Complete Succ 125mg (Solu-Medr 04:30 Clindamycin Ivpb PHA 02/16/25 Complete 600mg/50ml (Cleocin 04:25 Current Medications Medications (Trade) Dose Ordered Sig/Amarjit Route PRN Reason Start Time Stop Time Status Last Admin Dose Admin Clindamycin HCl/ Dextrose 50 ml @ 100 mls/hr Q8H STAT IV 02/16/25 04:25 02/16/25 04:54 DC 02/16/25 04:56 Methylprednisolone Sodium Succinate (Solu-medROL 125MG) 125 mg ONCE ONCE IVP 02/16/25 04:30 02/16/25 04:31 DC 02/16/25 04:56 Vital Signs Date Time Temp Pulse Resp B/P (MAP) Pulse Ox O2 Delivery O2 Flow Rate FiO2 02/16/25 04:42 96.6 74 17 117/65 99 Room Air* 0 21 02/16/25 04:19 97.5 76 18 144/82 99 Room Air DX & DISP Disposition: Discharge Departure Impression: Primary Impression: Periodontal disease Additional Impression: Tooth decay Condition: Stable Scripts Prednisone (Prednisone) 5 Mg Tablet 1 TAB PO BID for 7 Days, #14 TAB 0 Refills Prov: JUMANA VICTORIA MD 02/16/25 Clindamycin HCl (Clindamycin HCl) 300 Mg Capsule 1 CAP PO QID for 7 Days, #28 CAP 0 Refills Prov: JUMANA VICTORIA MD 02/16/25 Additional Instructions: FOLLOW-UP WITH PRIMARY CARE PROVIDER IN 1 TO 2 DAYS. TAKE MEDICATIONS DIRECTED HERE IN THE EMERGENCY ROOM. OKAY TO CONTINUE HOME MEDICATIONS UNLESS OTHERWISE DISCUSSED DURING YOUR VISIT IN THE EMERGENCY ROOM TODAY. RETURN TO YOUR NEAREST EMERGENCY ROOM IF SYMPTOMS WORSEN OR IF THERE IS NO IMPROVEMENT. CALL 911 IF YOU NEED IMMEDIATE ASSISTANCE. TAKE TYLENOL [id number] NEEDED AND IF NO CONTRAINDICATIONS ARE PRESENT. INCREASE ORAL HYDRATION. A WOUND CULTURE OR URINE CULTURE WAS ORDERED HERE IN THE EMERGENCY ROOM DEPARTMENT PLEASE FOLLOW-UP WITH PRIMARY CARE PROVIDER AND ADVISE THEM TO GET REPEAT PORTS FROM OUR FACILITY. IF YOU HAD ANY [place] WRAP/SPLINTS THAT WERE APPLIED HERE, PLEASE DO NOT REMOVE THEM UNTIL YOU SEE YOUR PRIMARY CARE OR SPECIALTY. REFERRALS: Referrals: LATESHA ARNOLD (PCP) Time of Disposition: 06:03 JUMANA VICTORIA MD February 16, 2025 04:28
[2025-02-16 04:53] LABS: BASOPHILS # (AUTO) 0.04 K/uL (0.00-0.20); BASOPHILS % (AUTO) 0.3 % (0.0-5.0); EOSINOPHILS # (AUTO) 0.19 K/uL (0.00-0.70); EOSINOPHILS % (AUTO) 1.6 % (0.0-8.0); HEMATOCRIT 42.4 % (42-54); IMMATURE GRANULOCYTE ABSOLUTE 0.04 K/uL (0-1); LYMPHOCYTES # (AUTO) 2.5 K/uL (1.0-4.8); LYMPHOCYTES % (AUTO) 21.8 % (21.0-51.0); MEAN CORPUSCULAR HEMOGLOBIN 30.2 pg (27.0-33.0); MEAN CORPUSCULAR HGB CONC 33.7 g/dL (32.0-36.0); MEAN CORPUSCULAR VOLUME 89.5 fL (79-99); MONOCYTES # (AUTO) 1.3 K/uL (0.1-1.0); MONOCYTES % (AUTO) 11.2 % (3.0-13.0); NEUTROPHILS # (AUTO) 7.5 K/uL (1.8-7.7); NEUTROPHILS % (AUTO) 64.8 % (40.0-77.0); PLATELET COUNT (AUTO) 324 K/uL (130-400); RED BLOOD CELL COUNT(AUTO) 4.74 MIL/uL (4.50-6.20); RED CELL DISTRIBUTION WIDTH 13.4 % (11.0-15.5); WHITE BLOOD COUNT (AUTO) 11.6 K/uL (4.8-10.8)
[2025-02-16] MEDS: Solu-medROL 125MG VIAL IVP ONE (04:56)
[2025-02-16] MEDS: CLINDAMYCIN IVPB 600MG/50ML 50 ML IV STA (04:56)
[2025-02-16 05:08] LABS: CREATININE 0.7 mg/dL (0.5-1.3); POTASSIUM 3.9 mmol/L (3.5-5.1)
[2025-02-16] MEDS ORDERED: PRED5TAB PO (06:04)
[2025-02-16] MEDS ORDERED: CLIN-141 PO (06:04)
[2025-02-16 06:33] VITALS: BP 113/62; PULSE 72; RESP 18; TEMP 97.6; O2SAT 99
== END 2025-02-16 06:34 | disposition home or self-care (01) ==
LOC: EDH 04:18
DX: K05.6 Periodontal disease, unspecified (principal); K02.9 Dental caries, unspecified; E78.00 Pure hypercholesterolemia, unspecified; F17.200 Nicotine dependence, unspecified, uncomplicated; I10 Essential (primary) hypertension; Z79.899 Other long term (current) drug therapy; Z88.0 Allergy status to penicillin; Z90.49 Acquired absence of other specified parts of digestive tract
CPT/HCPCS: 99284; 96365; 96375; 80048; 85025; 36415; J2919; J3490

== ENCOUNTER 2025-07-08 11:56 | Emergency (ER) | payer BC ==
[~2025-07-08] VITALS: Ht 165.1 cm; Wt 104.3 kg
[~2025-07-08 11:56] MED LIST changes: +CLIN-141 PO; +PRED5TAB PO
[2025-07-08 12:06] VITALS: BP 172/67; PULSE 78; RESP 18; TEMP 97.6; O2SAT 99
[2025-07-08 12:43] LABS: IMMATURE GRANULOCYTE ABSOLUTE 0.02 K/uL (0-1); NUCLEATED RED BLOOD CELLS 0.0 % (0.0-0.19); PLATELET COUNT (AUTO) 330 K/uL (130-400); RED BLOOD CELL COUNT(AUTO) 4.63 MIL/uL (4.50-6.20); RED CELL DISTRIBUTION WIDTH 13.3 % (11.0-15.5); WHITE BLOOD COUNT (AUTO) 9.4 K/uL (4.8-10.8)
[2025-07-08 12:55] LABS: CREATININE 0.7 mg/dL (0.5-1.3); GLOMERULAR FILTR. RATE CALC 105.0 mL/min (>90); GLUCOSE,RANDOM 104.0 mg/dL (70-105); SODIUM SERUM 143.0 mmol/L (136-145); UREA NITROGEN, BLOOD 17.0 mg/dL (7-18)
[2025-07-08] MEDS: 0.9%NACL 1000ML 1,000 ML IV STA (13:06)
--- NOTE | 2025-07-08 13:11 | HMCIMG ---
EXAM: CT Abdomen and Pelvis Without IV contrast CLINICAL HISTORY: r flank pain TECHNIQUE: Axial computed tomography images of the abdomen and pelvis without intravenous contrast. CONTRAST: No IV contrast. COMPARISON: None provided. FINDINGS: LUNG BASES: The lung bases appear clear. No pleural effusions are seen. LIVER: The liver is enlarged in size. The right hepatic lobe measures up to 18 cm. Diffuse hypoattenuation of the liver suggestive of hepatic steatosis. GALLBLADDER AND BILE DUCTS: Post-cholecystectomy status. No biliary ductal dilatation is evident. PANCREAS: Unremarkable. SPLEEN: Unremarkable. ADRENAL GLANDS: Unremarkable. KIDNEYS, URETERS, AND BLADDER: The kidneys appear within normal limits. There is no hydronephrosis or hydroureter. No urinary calculi are seen. Bilateral perinephric fat stranding that is concerning for renal parenchymal disease. STOMACH AND BOWEL: Unremarkable appearance of the stomach and bowel. No evidence of bowel obstruction. No evidence suggesting enteritis or colitis. Colonic diverticulosis without diverticulitis. APPENDIX: No evidence of acute appendicitis on CT examination. PERITONEUM: No free fluid. No free air. LYMPH NODES: No lymphadenopathy is evident. REPRODUCTIVE: The prostate is mildly enlarged, measuring 28 cc. VASCULATURE: No evidence of abdominal aortic aneurysm. BONES: No acute findings. IMPRESSION: No acute findings. Hepatic steatosis. /[place]
--- NOTE | 2025-07-08 13:59 | ERN ---
ED Note History of Present Illness Stated Complaint: FLANK PAIN Chief Complaint: Flank Pain Time Seen by MD: 11:59 Time Seen by Midlevel: 12:01 Dictation: 60-year-old male history of hypertension and cholesterol coming in with complaints of right flank pain patient states it has been going on for the last six months. Patient states he was told six months ago he had a kidney stone and was placed on Flomax. Patient states he has a attempted multiple times he see a specialist but states it is very expensive. Patient denies having any fever, nausea or vomiting or diarrhea. Allergies: Coded Allergies: No Allergy Information Available (Verified Allergy, Unknown, 10/02/17) Penicillins (Unverified Allergy, Unknown, 01/24/21) Home Meds Active Scripts Prednisone (Prednisone) 5 Mg Tablet, 1 TAB PO BID for 7 Days, #14 TAB 0 Refills Prov:JUMANA VICTORIA MD 02/16/25 Clindamycin HCl (Clindamycin HCl) 300 Mg Capsule, 1 CAP PO QID for 7 Days, #28 CAP 0 Refills Prov:JUMANA VICTORIA MD 02/16/25 Ketorolac Tromethamine (Toradol) 10 Mg Tab, 1 TAB PO Q6HPRN PRN for pain for 5 Days, #20 TAB 0 Refills Prov:HERBER WARE MD 11/01/24 Levofloxacin (Levofloxacin) 250 Mg Tablet, 1 TAB PO DAILY for 3 Days, #7 TAB 0 Refills Prov:HERBER WARE MD 11/01/24 Tamsulosin HCl (Flomax) 0.4 Mg Cap.er.24h, 1 CAP PO DAILY for 30 Days, #30 CAP 0 Refills Prov:HERBER WARE MD 11/01/24 Reported Medications Amlodipine Besylate (Amlodipine Besylate) 5 Mg Tablet, 5 MG PO DAILY, TAB 05/04/24 Lisinopril (Lisinopril) 20 Mg Tablet, 20 MG PO DAILY, TAB 05/04/24 Metformin HCl (Metformin HCl) 500 Mg Tablet, 500 MG PO AD, TAB 05/04/24 Pantoprazole Sodium (Pantoprazole Sodium) 40 Mg Tablet.dr, 40 MG PO DAILY, TAB 05/04/24 Atorvastatin Calcium (LIPITOR) 20 Mg Tab, 20 MG PO HS, TAB 05/04/24 Past Medical History Past Medical History: Diabetes-Type II, Hypertension Surgical History: Cholecystectomy Social History: Smokers, ETOH Review of System Dictation Constitutional: Negative for fever,chills, and weight loss Eyes: Negative for injury, pain,redness, and discharge ENT: Negative for injury,pain or swelling Cardiovascular: Negative for chest pain, palpitations, and edema Respiratory: Negative for shortness of breath, cough, and wheezing, Abdomen/GI: Negative for abdominal pain, nausea, vomiting, diarrhea, and constipation, complaining of right flank pain Back: Negative for injury and pain : Negative for injury, bleeding and discharge MS/Extremity: Negative for injury and deformity Skin: Negative for rash, and discoloration Neuro: Negative for headache, weakness, numbness, tingling, and seizure Psych: Negative for suicide ideation, homicidal ideation, and hallucinations Review of Systems: was completed Initial Vital Sign VS Vital Signs Date Time Temp Pulse Resp B/P (MAP) Pulse Ox O2 Delivery O2 Flow Rate FiO2 07/08/25 11:59 97.5 78 18 172/67 99 Room Air 0 07/08/25 12:06 21 Physical Exam Dictation General: awake, alert, NAD Head/Face: Normocephalic, atraumatic Eyes: PERRL, EOMI, vision at baseline ENT: oral cavity clear, TMs clear, no signs of infection Neck: Trachea midline, supple, no nuchal rigidity Cardiovascular: RRR, normal S1/S2, No MRGs, no JVD Respiratory: CTAB, no respiratory distress, No rales or wheezes Abdomen: Soft, non-tender, non-distended, normal bowel sounds, no guarding or rebound. Skin: Warm, dry, normal turgor, no rash MS/Extremity: Pulses equal, no cyanosis, neurovascular intact, FROM Neuro: COAx4, GCS 15, strength 5/5, CN 2-12 intact, normal cerebellar exam, normal gait, Psych: Normal behavior, mood, and affect normal Results (Laboratory/Radiology) Laboratory/Radiology Laboratory Tests Test 07/08/25 12:18 07/08/25 13:49 White Blood Count 9.4 K/uL (4.8-10.8) Red Blood Count 4.63 MIL/uL (4.50-6.20) Hemoglobin 13.7 g/dL (14.0-18.0) L Hematocrit 42.8 % (42-54) Mean Corpuscular Volume 92.4 fL (79-99) Mean Corpuscular Hemoglobin 29.6 pg (27.0-33.0) Mean Corpuscular Hemoglobin Concent 32.0 g/dL (32.0-36.0) Red Cell Distribution Width 13.3 % (11.0-15.5) Platelet Count 330 K/uL (130-400) Mean Platelet Volume 8.6 fL (7.5-10.5) Immature Granulocyte % (Auto) 0.2 % (0-1) Neutrophils (%) (Auto) 58.3 % (40.0-77.0) Lymphocytes (%) (Auto) 29.5 % (21.0-51.0) Monocytes (%) (Auto) 7.7 % (3.0-13.0) Eosinophils (%) (Auto) 3.8 % (0.0-8.0) Basophils (%) (Auto) 0.5 % (0.0-5.0) Neutrophils # (Auto) 5.5 K/uL (1.8-7.7) Lymphocytes # (Auto) 2.8 K/uL (1.0-4.8) Monocytes # (Auto) 0.7 K/uL (0.1-1.0) Eosinophils # (Auto) 0.36 K/uL (0.00-0.70) Basophils # (Auto) 0.05 K/uL (0.00-0.20) Absolute Immature Granulocyte (auto 0.02 K/uL (0-1) Nucleated Red Blood Cells 0.0 % (0.0-0.19) Sodium Level 143 mmol/L (136-145) Potassium Level 4.1 mmol/L (3.5-5.1) Chloride Level 105 mmol/L (101-111) Carbon Dioxide Level 31 mmol/L (21-32) Blood Urea Nitrogen 17 mg/dL (7-18) Creatinine 0.7 mg/dL (0.5-1.3) Glomerular Filtration Rate Calc 105 mL/min (>90) Random Glucose 104 mg/dL (70-105) Total Calcium 8.5 mg/dL (8.5-10.1) Urine Color YELLOW (YELLOW) Urine Appearance CLEAR (CLEAR) Urine pH 5.5 (5.0-8.0) Urine Specific [place] 1.027 (1.001-1.031) Urine Protein NEGATIVE mg/dL (NEGATIVE) Urine Glucose (UA) NEGATIVE mg/dL (NEGATIVE) Urine Ketones NEGATIVE mg/dL (NEGATIVE) Urine Occult Blood NEGATIVE (NEGATIVE) Urine Nitrate NEGATIVE (NEGATIVE) Urine Bilirubin NEGATIVE mg/dL (NEGATIVE) Urine Urobilinogen 0.2 mg/dL (0.2-1.0) Urine Leukocyte Esterase NEGATIVE [place]/uL Labs Reviewed?: Yes CT Scan Comment: [facility] [address] [place] [address] IMAGING REPORT Signed PATIENT: JACKSON POWERS MR#: [id number] : 1965 SEX: M AGE: 60 LOCATION: [facility] ORDER 06 STATUS: [facility] REPORT#: [id number] SERVICE [id number] REASON: r flank pain ORDERING PHYSICIAN: ANNA RILEY [employer] PROCEDURE: ABD PEL WO - CT ABDOMEN/PELVIS W/O CONTRAST EXAM: CT Abdomen and Pelvis Without IV contrast CLINICAL HISTORY: r flank pain TECHNIQUE: Axial computed tomography images of the abdomen and pelvis without intravenous contrast. CONTRAST: No IV contrast. COMPARISON: None provided. FINDINGS: LUNG BASES: The lung bases appear clear. No pleural effusions are seen. LIVER: The liver is enlarged in size. The right hepatic lobe measures up to 18 cm. Diffuse hypoattenuation of the liver suggestive of hepatic steatosis. GALLBLADDER AND BILE DUCTS: Post-cholecystectomy status. No biliary ductal dilatation is evident. PANCREAS: Unremarkable. SPLEEN: Unremarkable. ADRENAL GLANDS: Unremarkable. KIDNEYS, URETERS, AND BLADDER: The kidneys appear within normal limits. There is no hydronephrosis or hydroureter. No urinary calculi are seen. Bilateral perinephric fat stranding that is concerning for renal parenchymal disease. STOMACH AND BOWEL: Unremarkable appearance of the stomach and bowel. No evidence of bowel obstruction. No evidence suggesting enteritis or colitis. Colonic diverticulosis without diverticulitis. APPENDIX: No evidence of acute appendicitis on CT examination. PERITONEUM: No free fluid. No free air. LYMPH NODES: No lymphadenopathy is evident. REPRODUCTIVE: The prostate is mildly enlarged, measuring 28 cc. VASCULATURE: No evidence of abdominal aortic aneurysm. BONES: No acute findings. IMPRESSION: No acute findings. Hepatic steatosis. /[place] DICTATED BY: JENNA PEREZ MD DATE: 07/08/251409 ELECTRONICALLY SIGNED BY: JENNA PEREZ MD DATE: 07/08/251409 ED Course ED Course Orders Procedure Category Date Status Time Cbc With Differential LAB 07/08/25 Complete 12:05 Basic Metabolic Panel LAB 07/08/25 Complete 12:05 Urinalysis Profile LAB 07/08/25 Complete 12:05 Ct Abdomen/Pelvis W/O CT 07/08/25 Resulted Contrast 12:05 0.9%Nacl 1000ml (Ns PHA 07/08/25 In Process 1000ml) 12:05 Ondansetron 4mg Inj PHA 07/08/25 Complete (Zofran 4mg Inj) 12:30 Ketorolac PHA 07/08/25 Complete Tromethamine 15mg/Ml 12:30 Current Medications Medications (Trade) Dose Ordered Sig/Amarjit Route PRN Reason Start Time Stop Time Status Last Admin Dose Admin Ketorolac Tromethamine (toRADol) 15 mg ONCE ONCE IV 07/08/25 12:30 07/08/25 12:31 DC 07/08/25 13:06 Ondansetron HCl (zoFRAN 4MG INJ) 4 mg ONCE ONCE IVP 07/08/25 12:30 07/08/25 12:31 DC 07/08/25 13:05 Sodium Chloride 1,000 ml @ 100 mls/hr Q10H STAT IV 07/08/25 12:05 07/08/25 22:04 07/08/25 13:06 Vital Signs Date Time Temp Pulse Resp B/P (MAP) Pulse Ox O2 Delivery O2 Flow Rate FiO2 07/08/25 12:06 97.5 78 18 172/67 99 Room Air* 0 21 07/08/25 11:59 97.5 78 18 172/67 99 Room Air 0 Medical Decision Making MDM MDM: 60-year-old male history of hypertension and cholesterol coming in with complaints of right flank pain patient states it has been going on for the last six months. Patient states he was told six months ago he had a kidney stone and was placed on Flomax. Patient states he has a attempted multiple times he see a specialist but states it is very expensive. Patient denies having any fever, nausea or vomiting or diarrhea. CBC shows no leukocytosis, no anemia, no thrombocytopenia. Chemistry unremarkable. Normal kidney function. CT scan of the abdomen and pelvis without contrast shows kidneys within normal limits no hydronephrosis or hydroureter no urinary calculi seen. Bilateral perinephric fat stranding that is concerning for renal parenchymal disease. Unremarkable appearance of systemic. No evidence suggesting enterocolitis or colitis. A mildly enlarged prostate. Patient has no evidence of urinary tract infection. Discussed findings with the patient educated more than likely more likely related to a musculoskeletal pain versus any kidney etiology. Patient verbalized understanding, answered all questions. Differential diagnosis: Vital signs, nephrolithiasis, urinary tract infection, pyelonephritis Rationale: Tests considered and ordered secondary to shared decision making include: Previous outside records reviewed: Old ER visits. Risk of complication and/or morbidity or mortality of patient management: None Medications-Per medication reconciliation Need for hospitalization: Patient does not meet criteria for hospitalization. Need for emergency major/minor surgery: No There are no social concerns with this patient. Prescription drug management Prescriptions will include symptomatic care Patient's prior external medical records from other ER visits were reviewed by me as indicated. Prior testing and results from previous visits were reviewed. Prior tests were taken into account with medical decision making and resource utilization, independent historian/historians were used to obtain complete medical history. I independently interpreted the test that were performed, results were reviewed by me and considered findings on radiology if ordered. Medical management and examination interpretation discussions were had by me with other qualified healthcare professionals as indicated for the patient's care. DX & DISP Disposition: Discharge Departure Impression: Primary Impression: Right flank pain Additional Impression: Musculoskeletal pain Condition: Stable Additional Instructions: Your labs are normal. You do not have a urinary tract infection. You did not have a kidney stone. Your pain on your right flank area could be related to more musculoskeletal versus they kidney etiology. However you need to follow up with your PCP and or with the specialist. Return to the hospital if you develop any fevers, nausea vomiting or diarrhea. Referrals: LATESHA ARNOLD (PCP) Time of Disposition: 14:55 I have reviewed the case, and I agree with, Diagnosis and Plan ANNA RILEYP Jul 08, 2025 13:59
[2025-07-08 14:18] LABS: APPEARANCE,URINE CLEAR (CLEAR); GLUCOSE, URINE (UA) NEGATIVE (NEGATIVE); LEUKOCYTE ESTERASE ,URINE NEGATIVE Leu/uL (NEGATIVE); NITRATE,URINE NEGATIVE (NEGATIVE); OCCULT BLOOD,URINE NEGATIVE (NEGATIVE)
[2025-07-08 14:23] LABS: ADD UA MICROSCOPIC NO
== END 2025-07-08 15:23 | disposition home or self-care (01) ==
LOC: EDH 11:56
DX: R10.A1 Flank pain, right side (principal); M79.18 Myalgia, other site; E11.9 Type 2 diabetes mellitus without complications; I10 Essential (primary) hypertension; F17.200 Nicotine dependence, unspecified, uncomplicated; F10.90 Alcohol use, unspecified, uncomplicated; Z90.49 Acquired absence of other specified parts of digestive tract; Z79.899 Other long term (current) drug therapy; Z88.0 Allergy status to penicillin
CPT/HCPCS: 99284; 74176; 96374; 96361; 96375; 80048; 85025; 81003; 36415; J1885; J7030; J2405

== ENCOUNTER 2025-07-27 10:02 | Emergency (ER) | payer BC ==
[~2025-07-27] VITALS: Ht 167.6 cm; Wt 104.3 kg
--- NOTE | 2025-07-27 10:08 | ERN ---
ED Note History of Present Illness Stated Complaint: FLANK Chief Complaint: Flank Pain Time Seen by MD: 10:06 Dictation: PATIENT IS A 60-YEAR-OLD COMING IN TODAY WITH COMPLAINTS OF RIGHT FLANK PAIN THAT RADIATES TO RIGHT LOWER QUADRANT WITHOUT NAUSEA VOMITING FEVER CHILLS. HISTORY OF RENAL STONES PATIENT OF . Allergies: Coded Allergies: No Allergy Information Available (Verified Allergy, Unknown, 10/02/17) Penicillins (Unverified Allergy, Unknown, 01/24/21) Home Meds Active Scripts Prednisone (Prednisone) 5 Mg Tablet, 1 TAB PO BID for 7 Days, #14 TAB 0 Refills Prov:JUMANA VICTORIA MD 02/16/25 Clindamycin HCl (Clindamycin HCl) 300 Mg Capsule, 1 CAP PO QID for 7 Days, #28 CAP 0 Refills Prov:JUMANA VICTORIA MD 02/16/25 Ketorolac Tromethamine (Toradol) 10 Mg Tab, 1 TAB PO Q6HPRN PRN for pain for 5 Days, #20 TAB 0 Refills Prov:HERBER WARE MD 11/01/24 Levofloxacin (Levofloxacin) 250 Mg Tablet, 1 TAB PO DAILY for 3 Days, #7 TAB 0 Refills Prov:HERBER WARE MD 11/01/24 Tamsulosin HCl (Flomax) 0.4 Mg Cap.er.24h, 1 CAP PO DAILY for 30 Days, #30 CAP 0 Refills Prov:HERBER WARE MD 11/01/24 Reported Medications Amlodipine Besylate (Amlodipine Besylate) 5 Mg Tablet, 5 MG PO DAILY, TAB 05/04/24 Lisinopril (Lisinopril) 20 Mg Tablet, 20 MG PO DAILY, TAB 05/04/24 Metformin HCl (Metformin HCl) 500 Mg Tablet, 500 MG PO AD, TAB 05/04/24 Pantoprazole Sodium (Pantoprazole Sodium) 40 Mg Tablet.dr, 40 MG PO DAILY, TAB 05/04/24 Atorvastatin Calcium (LIPITOR) 20 Mg Tab, 20 MG PO HS, TAB 05/04/24 Past Medical History Past Medical History: Diabetes-Type II, High Cholesterol, Hypertension Surgical History: Cholecystectomy Social History: Smokers, ETOH RN Note Reviewed/Agreed w/PFSH: Yes Review of System Dictation CONSTITUTIONAL: NEGATIVE EXCEPT FOR HPI HEAD/FACE: NEGATIVE EXCEPT FOR HPI EENT: NEGATIVE EXCEPT FOR HPI RESPIRATORY: NEGATIVE EXCEPT FOR HPI GASTROINTESTINAL/ABDOMINAL: NEGATIVE EXCEPT FOR HPI GENITOURINARY: NEGATIVE EXCEPT FOR HPI RIGHT FLANK PAIN RADIATING TO RIGHT LOWER QUADRANT MUSCULOSKELETAL: NEGATIVE EXCEPT FOR HPI INTEGUMENTARY: NEGATIVE EXCEPT FOR HPI NEUROLOGICAL/PSYCH: NEGATIVE EXCEPT FOR HPI HEMATOLOGIC/LYMPHATIC: NEGATIVE EXCEPT FOR HPI ALL SYSTEMS NEGATIVE, EXCEPT NOTED ABOVE. 13 POINT REVIEW OF SYSTEMS ASSESSED AND ALL NEGATIVE EXCEPT FOR ABOVE. Initial Vital Sign VS Vital Signs Date Time Temp Pulse Resp B/P (MAP) Pulse Ox O2 Delivery O2 Flow Rate FiO2 07/27/25 10:03 98.2 72 18 142/82 99 Room Air 0 07/27/25 12:00 21 Physical Exam Dictation VITAL SIGNS REVIEWED MODERATE ACUTE DISTRESS, WELL DEVELOPED, NOURISHED. HEAD AND FACE: NON-TRAUMATIC. EYES: PERRL, PINK CONJUNCTIVAS, EYELID NO TRAUMA, ANTERIOR CHAMBER WITH ARCUS SENILIS. EARS: PINNAS INTACT AND NO SIGNS OF TRAUMA OR ERYTHEMA EAR CANALS CLEAR AND NO DISCHARGE TM NO ERYTHEMA NOSE: NO DISCHARGE, NO BLEEDING. OROPHARYNX: MOUTH NORMAL, TONGUE PINK, PHARYNX CLEAR,NO ERYTHEMA, TONSILS NO EXUDATES, NO ABSCESSES NOTED, MUCOUS MEMBRANE MOIST NECK: SUPPLE, NON-TENDER, NO THYROMEGALY, NO MASSES, NO JVD, NO BRUITS BREAST:DEFERRED CHEST:NO TENDERNESS, NO CREPITUS, NO PARADOXICAL MOVEMENT, NO RETRACTIONS LUNGS:CLEAR, WELL-VENTILATED, SYMMETRIC, NO RALES, NO WHEEZING, NO RHONCHI, NO STRIDOR, GOOD BREATH SOUNDS BILATERALLY HEART: REGULAR RATE, REGULAR RHYTHM, NO MURMUR, NO GALLOPS VASCULAR: NO PERIPHERAL EDEMA, ABDOMEN: SOFT, POSITIVE BOWEL SOUNDS, NONDISTENDED, NO GUARDING, NONTENDER, NO REBOUND, NO MASSES NO HEPATOMEGALY, NO SPLENOMEGALY, NO JIMENEZ'S SIGN, NO HERNIAS. NEGATIVE CVAT RECTAL: DEFERRED GENITAL: DEFERRED NEUROLOGICAL: NORMAL SPEECH, MOTOR FUNCTION INTACT, SENSORY FUNCTION INTACT MUSCULOSKELETAL: NECK NONTENDER, FULL RANGE OF MOTION, BACK NONTENDER, FULL RANGE OF MOTION, EXTREMITIES: NONTENDER, FULL RANGE OF MOTION SKIN: COLOR PINK, DRY, NO TURGOR, NO RASH, NO LACERATIONS, NO ABRASIONS, NO CONTUSIONS. LYMPHATIC: DEFERRED Results (Laboratory/Radiology) Laboratory/Radiology Laboratory Tests Test 07/27/25 10:19 07/27/25 10:30 White Blood Count 9.0 K/uL (4.8-10.8) Red Blood Count 4.65 MIL/uL (4.50-6.20) Hemoglobin 14.0 g/dL (14.0-18.0) Hematocrit 41.5 % (42-54) L Mean Corpuscular Volume 89.2 fL (79-99) Mean Corpuscular Hemoglobin 30.1 pg (27.0-33.0) Mean Corpuscular Hemoglobin Concent 33.7 g/dL (32.0-36.0) Red Cell Distribution Width 13.3 % (11.0-15.5) Platelet Count 334 K/uL (130-400) Mean Platelet Volume 8.4 fL (7.5-10.5) Immature Granulocyte % (Auto) 0.3 % (0-1) Neutrophils (%) (Auto) 65.7 % (40.0-77.0) Lymphocytes (%) (Auto) 23.6 % (21.0-51.0) Monocytes (%) (Auto) 7.8 % (3.0-13.0) Eosinophils (%) (Auto) 2.2 % (0.0-8.0) Basophils (%) (Auto) 0.4 % (0.0-5.0) Neutrophils # (Auto) 5.9 K/uL (1.8-7.7) Lymphocytes # (Auto) 2.1 K/uL (1.0-4.8) Monocytes # (Auto) 0.7 K/uL (0.1-1.0) Eosinophils # (Auto) 0.20 K/uL (0.00-0.70) Basophils # (Auto) 0.04 K/uL (0.00-0.20) Absolute Immature Granulocyte (auto 0.03 K/uL (0-1) Nucleated Red Blood Cells 0.0 % (0.0-0.19) Sodium Level 139 mmol/L (136-145) Potassium Level 3.9 mmol/L (3.5-5.1) Chloride Level 103 mmol/L (101-111) Carbon Dioxide Level 29 mmol/L (21-32) Blood Urea Nitrogen 14 mg/dL (7-18) Creatinine 0.7 mg/dL (0.5-1.3) Glomerular Filtration Rate Calc 105 mL/min (>90) Random Glucose 99 mg/dL (70-105) Total Calcium 8.6 mg/dL (8.5-10.1) Urine Color LIGHT-YELLOW (YELLOW) Urine Appearance CLEAR (CLEAR) Urine pH 7.0 (5.0-8.0) Urine Specific [place] 1.020 (1.001-1.031) Urine Protein NEGATIVE mg/dL (NEGATIVE) Urine Glucose (UA) NEGATIVE mg/dL (NEGATIVE) Urine Ketones NEGATIVE mg/dL (NEGATIVE) Urine Occult Blood NEGATIVE (NEGATIVE) Urine Nitrate NEGATIVE (NEGATIVE) Urine Bilirubin NEGATIVE mg/dL (NEGATIVE) Urine Urobilinogen 0.2 mg/dL (0.2-1.0) Urine Leukocyte Esterase NEGATIVE [place]/uL ADRENAL GLANDS: Unremarkable. KIDNEYS, URETERS, AND BLADDER: The kidneys appear within normal limits. There is no hydronephrosis or hydroureter. No urinary calculi are seen. Bilateral perinephric fat stranding that is concerning for renal parenchymal disease. STOMACH AND BOWEL: Unremarkable appearance of the stomach and bowel. No evidence of bowel obstruction. No evidence suggesting enteritis or colitis. Colonic diverticulosis without diverticulitis. APPENDIX: No evidence of acute appendicitis on CT examination. PERITONEUM: No free fluid. No free air. LYMPH NODES: No lymphadenopathy is evident. REPRODUCTIVE: The prostate is mildly enlarged, measuring 28 cc. VASCULATURE: No evidence of abdominal aortic aneurysm. BONES: No acute findings. IMPRESSION: 1. Focal hyperdense lesion in segment YONI of the right hepatic lobe, persistent on all phases. Advice triple phase CT. 2. Redemonstrated Bilateral perinephric fat stranding, concerning for renal parenchymal disease. 3. No acute findings. /[facility] Labs Reviewed?: Yes ED Course ED Course Orders Procedure Category Date Status Time Cbc With Differential LAB 07/27/25 Complete 10: Urinalysis Profile LAB 07/27/25 Complete 10: Ct Abdomen/Pelvis CT 07/27/25 Resulted W/Contrast 10:07 0.9%Nacl 1000ml (Ns PHA 07/27/25 Complete 1000ml) 10:30 Ketorolac PHA 07/27/25 Complete Tromethamine 30mg/Ml 10:30 Basic Metabolic Panel LAB 07/27/25 Complete 10:07 Ondansetron 4mg Inj PHA 07/27/25 Complete (Zofran 4mg Inj) 11:00 Iohexol (Omnipaque) PHA 07/27/25 Complete 10:59 Azithromycin PHA 07/27/25 Logged (Zithromax) 12:30 Current Medications Medications (Trade) Dose Ordered Sig/Amarjit Route PRN Reason Start Time Stop Time Status Last Admin Dose Admin Azithromycin (Zithromax) 500 mg ONCE ONCE PO 07/27/25 12:30 07/27/25 12:31 UNV Iohexol (Omnipaque) 75 ml STK-MED ONCE IV 07/27/25 10:59 07/27/25 10:59 DC Ketorolac Tromethamine (toRADol) 30 mg ONCE ONCE IVP 07/27/25 10:30 07/27/25 10:31 DC 07/27/25 11:59 Ondansetron HCl (zoFRAN 4MG INJ) 4 mg ONCE ONCE IVP 07/27/25 11:00 07/27/25 11:01 DC 07/27/25 11:58 Sodium Chloride 1,000 ml @ 0 mls/hr ONCE ONCE IV 07/27/25 10:30 07/27/25 10:31 DC 07/27/25 11:58 Vital Signs Date Time Temp Pulse Resp B/P (MAP) Pulse Ox O2 Delivery O2 Flow Rate FiO2 07/27/25 12:00 98.8 77 12 125/78 78 Room Air* 0 21 07/27/25 10:03 98.2 72 18 142/82 99 Room Air 0 1212/PATIENT WILL BE GIVEN AZITHROMYCIN FOR PARENCHYMAL DISEASE IN ADDITION HE WAS MADE AWARE OF THE HEPATIC LOBE LESION. GIVEN THE NAME OF DR.DANILO ANNE FOLLOW UP WITH FOR UROLOGY AND TOLD TO SEE HIS DOCTOR FOR FURTHER IMAGING OF THE LIVER. Medical Decision Making MDM MEDICAL DISCHARGE MAKING BASED ON BASIC LABS FOR RULING OUT RENAL STONE. NO STONE ON CT AND BUN AND CREATININE EARS NORMAL PATIENT HAS A PARENCHYMAL DISEASE WITH A LIVER LOBE LESION WE WILL BE GIVEN AZITHROMYCIN 500 MG REFERRED TO UROLOGISTS FOR PARENCHYMAL DISEASE AND SEE HIS DOCTOR DX & DISP Disposition: Discharge Departure Impression: Primary Impression: Renal parenchymal disease Additional Impression: Hypodense mass of right lobe of liver Condition: Stable Scripts Azithromycin (Zithromax Tri-Adam) 500 Mg Tablet 500 MG PO DAILY for 5 Days, #5 TAB Prov: VANDA STEVENS 07/27/25 Additional Instructions: FOLLOW-UP WITH PRIMARY CARE PROVID SEE YOUR PRIMARY ER IN 1 TO 2 DAYS. TAKE MEDICATIONS DIRECTED HERE IN THE EMERGENCY ROOM. OKAY TO CONTINUE HOME MEDICATIONS UNLESS OTHERWISE DISCUSSED DURING YOUR VISIT IN THE EMERGENCY ROOM TODAY. RETURN TO YOUR NEAREST EMERGENCY ROOM IF SYMPTOMS WORSEN OR IF THERE IS NO IMPROVEMENT. CALL 911 IF YOU NEED IMMEDIATE ASSISTANCE. TAKE TYLENOL OR MOTRIN [id number] NEEDED AND IF NO CONTRAINDICATIONS ARE PRESENT. IN CREASE ORAL HYDRATION. A WOUND CULTURE OR URINE CULTURE WAS ORDERED HERE IN THE EMERGENCY ROOM DEPARTMENT PLEASE FOLLOW-UP WITH PRIMARY CARE PROVIDER AND ADVISE THEM TO GET REPEAT PORTS FROM OUR FACILITY. IF YOU HAD ANY [place] WRAP/SPLINTS THAT WERE APPLIED HERE, PLEASE DO NOT REMOVE THEM UNTIL YOU SEE YOUR PRIMARY CARE OR SPECIALTY. INCREASE YOUR WATER INTAKE. TAKE ANTIBIOTICS DIRECTED UNTIL GONE STARTING TOMORROW. CALL UROLOGIST FOR AN APPOINTMENT TODAY CARE DOCTOR FOR FOLLOW UP OF YOUR LIVER MASS. Referrals: LATESHA ARNOLD (PCP) RICK ANNE MD Time of Disposition: 12:16 I have reviewed the case, and I agree with, Diagnosis and Plan VANDA STEVENS Jul 27, 2025 10:08
[2025-07-27 10:24] LABS: IMMATURE GRANULOCYTE ABSOLUTE 0.03 K/uL (0-1); NUCLEATED RED BLOOD CELLS 0.0 % (0.0-0.19); PLATELET COUNT (AUTO) 334 K/uL (130-400); RED BLOOD CELL COUNT(AUTO) 4.65 MIL/uL (4.50-6.20); RED CELL DISTRIBUTION WIDTH 13.3 % (11.0-15.5); WHITE BLOOD COUNT (AUTO) 9.0 K/uL (4.8-10.8)
[2025-07-27 10:35] LABS: CREATININE 0.7 mg/dL (0.5-1.3); GLOMERULAR FILTR. RATE CALC 105.0 mL/min (>90); GLUCOSE,RANDOM 99.0 mg/dL (70-105); SODIUM SERUM 139.0 mmol/L (136-145); UREA NITROGEN, BLOOD 14.0 mg/dL (7-18)
[2025-07-27 10:38] LABS: APPEARANCE,URINE CLEAR (CLEAR); GLUCOSE, URINE (UA) NEGATIVE (NEGATIVE); LEUKOCYTE ESTERASE ,URINE NEGATIVE Leu/uL (NEGATIVE); NITRATE,URINE NEGATIVE (NEGATIVE); OCCULT BLOOD,URINE NEGATIVE (NEGATIVE)
[2025-07-27 10:46] LABS: ADD UA MICROSCOPIC NO
[2025-07-27] MEDS ORDERED: IOHEXOL-350 75 ML VIAL IV ONE (10:59)
[2025-07-27] MEDS: 0.9%NACL 1000ML 1,000 ML IV ONE (11:58)
[2025-07-27 12:00] VITALS: BP 125/78; PULSE 77; RESP 12; TEMP 98.7; O2SAT 78
--- NOTE | 2025-07-27 12:00 | HMCIMG ---
EXAM: CT Abdomen and Pelvis with IV contrast CLINICAL HISTORY: RIGHT FLANK PAIN RADIATING TO RIGHT LOWER QUADRANT TECHNIQUE: Axial computed tomography images of the abdomen and pelvis with intravenous contrast. CONTRAST: with intravenous contrast. COMPARISON: Plain CT Dated 07/08. FINDINGS: FINDINGS: LUNG BASES: The lung bases appear clear. No pleural effusions are seen. LIVER: The liver is enlarged in size. The right hepatic lobe measures up to 18 cm. Diffuse hypoattenuation of the liver is suggestive of hepatic steatosis. A focal hyperdense area in the right lobe of the liver in segment YONI, which shows persistent hyperdensity in the contrast phase and delayed phase of contrast enhancement. GALLBLADDER AND BILE DUCTS: Post-cholecystectomy status. No biliary ductal dilatation is evident. PANCREAS: Unremarkable. SPLEEN: Unremarkable. ADRENAL GLANDS: Unremarkable. KIDNEYS, URETERS, AND BLADDER: The kidneys appear within normal limits. There is no hydronephrosis or hydroureter. No urinary calculi are seen. Bilateral perinephric fat stranding that is concerning for renal parenchymal disease. STOMACH AND BOWEL: Unremarkable appearance of the stomach and bowel. No evidence of bowel obstruction. No evidence suggesting enteritis or colitis. Colonic diverticulosis without diverticulitis. APPENDIX: No evidence of acute appendicitis on CT examination. PERITONEUM: No free fluid. No free air. LYMPH NODES: No lymphadenopathy is evident. REPRODUCTIVE: The prostate is mildly enlarged, measuring 28 cc. VASCULATURE: No evidence of abdominal aortic aneurysm. BONES: No acute findings. IMPRESSION: 1. Focal hyperdense lesion in segment YONI of the right hepatic lobe, persistent on all phases. Advice triple phase CT. 2. Redemonstrated Bilateral perinephric fat stranding, concerning for renal parenchymal disease. 3. No acute findings. /[place]
[2025-07-27] MEDS ORDERED: AZIT500T2 PO (12:17)
[2025-07-27] MEDS ORDERED: AZITHROMYCIN 250 MG TABLET PO ONE (12:30)
== END 2025-07-27 14:00 | disposition home or self-care (01) ==
LOC: EDH 10:02
DX: N28.9 Disorder of kidney and ureter, unspecified (principal); R16.0 Hepatomegaly, not elsewhere classified; E11.9 Type 2 diabetes mellitus without complications; E78.00 Pure hypercholesterolemia, unspecified; F17.200 Nicotine dependence, unspecified, uncomplicated; I10 Essential (primary) hypertension; Z79.52 Long term (current) use of systemic steroids; Z79.899 Other long term (current) drug therapy; Z88.0 Allergy status to penicillin; Z90.49 Acquired absence of other specified parts of digestive tract
CPT/HCPCS: 99284; 74177; 96374; 96361; 96375; 80048; 85025; 81003; 36415; J1885; J7030; J2405; Q9967